=== PATIENT | female | born 1955 | race African-American/Black ===

== ENCOUNTER 2017-03-30 15:52 | Emergency (ER) | payer MEDICAID ==
[~2017-03-30] VITALS: Ht 167.6 cm; Wt 70.0 kg
[2017-03-30] MEDS ORDERED: IBUPROFEN 400MG TABLET PO ONE (18:15)
[2017-03-30] MEDS ORDERED: ACETAMINOPHEN 325MG TABLET PO ONE (21:15)
[2017-03-31 05:52] VITALS: BP 136/81
== END 2017-03-31 06:11 | disposition home or self-care (01) ==
LOC: ER 15:53
DX: S93.402A Sprain of unspecified ligament of left ankle, initial encounter (principal); G89.29 Other chronic pain; M79.605 Pain in left leg; X58.XXXA Exposure to other specified factors, initial encounter; Y93.89 Activity, other specified; Y92.89 Other specified places as the place of occurrence of the external cause; I10 Essential (primary) hypertension
CPT/HCPCS: 73610; 99284

== ENCOUNTER 2017-08-25 23:12 | Emergency (ER) | payer MEDICAID ==
[~2017-08-25] VITALS: Ht 165.1 cm; Wt 65.0 kg
[2017-08-26] MEDS ORDERED: ENALAPRIL 2.5MG/2ML VIAL 2ML IV SCH (03:30)
[2017-08-26 03:48] LABS: EOSINOPHILS % 0.5 % (0.0-5.0); HEMATOCRIT. 36.4 % (36.0-48.0); HEMOGLOBIN. 11.9 g/dL (12.0-16.0); LYMPHOCYTES % 28.1 % (20.0-50.0); MEAN CORPUSCULAR HEMOGLOBIN 26.2 pg (28.0-32.0); MEAN CORPUSCULAR VOLUME 79.8 fL (81.0-99.0); MEAN PLATELET VOLUME 7.9 fl (7.4-10.4); MONOCYTES % 8.8 % (2.0-8.0); NEUTROPHILS % 61.6 % (40.0-76.0); PLATELET 234 x1000/uL (130-400); RED BLOOD CELL COUNT 4.55 mill/uL (4.2-5.4); RED CELL DISTRIBUTION WIDTH 13.2 % (11.6-14.6)
[2017-08-26 03:52] LABS: PROTHROMBIN TIME 10.2 sec (9.4-11.6)
[2017-08-26 04:03] LABS: CARBON DIOXIDE 32 mEq/L (21-32); CHLORIDE 102 mEq/L (98-107); ETHANOL BLOOD < 10 mg/dL; TROPONIN I < 0.02 ng/mL (0.00-0.04)
[2017-08-26] MEDS ORDERED: CLONIDINE 0.1MG TABLET PO ONE (05:15)
[2017-08-26] MEDS ORDERED: IBUPROFEN 600MG TABLET PO ONE (05:30)
[2017-08-26 05:53] LABS: CLARITY URINE CLEAR (CLEAR); COLOR URINE YELLOW (YELLOW); GLUCOSE URINE NEGATIVE (NEGATIVE); KETONES URINE NEGATIVE (NEGATIVE); LEUKOCYTE ESTERASE URINE 1+ (NEGATIVE); NITRITE URINE NEGATIVE (NEGATIVE); OCCULT BLOOD URINE 2+ (NEGATIVE); PROTEIN URINE NEGATIVE (NEGATIVE); SPECIFIC GRAVITY URINE 1.012 (1.005-1.030); UROBILINOGEN URINE 0.2 E.U./dL (0.2-1.0)
[2017-08-26 06:30] LABS: *AMPHETAMINES SCREEN URINE NEGATIVE (NEGATIVE); *BARBITURATES SCREEN URINE NEGATIVE (NEGATIVE); *BENZODIAZEPINES SCREEN URINE NEGATIVE (NEGATIVE); *COCAINE SCREEN URINE NEGATIVE (NEGATIVE); CANNABINOID URINE SCREEN NEGATIVE (NEGATIVE); METHADONE URINE SCREEN NEGATIVE (NEGATIVE); OPIATES URINE SCREEN NEGATIVE (NEGATIVE); PHENCYCLIDINE URINE SCREEN PRESUMTIVE POSITIVE (NEGATIVE)
[2017-08-26] MEDS ORDERED: POTASSIUM CHLORIDE 20MEQ TABLET SR PO SCH (06:30)
[2017-08-26 08:43] VITALS: BP 152/98
== END 2017-08-26 08:50 | disposition home or self-care (01) ==
LOC: ER 23:12
DX: M79.671 Pain in right foot (principal); I10 Essential (primary) hypertension; X50.1XXA Overexertion from prolonged static or awkward postures, initial encounter; Y93.89 Activity, other specified; Y92.89 Other specified places as the place of occurrence of the external cause
CPT/HCPCS: 36415; 70450; 73630; 80053; 80305; 81001; 84484; 85025; 85610; 93005; 96374; 99285; G0482; J3490; Z7610

== ENCOUNTER 2018-06-24 20:03 | Emergency (ER) | payer MEDICAID ==
[~2018-06-24] VITALS: Ht 167.6 cm; Wt 69.0 kg
[2018-06-24] MEDS ORDERED: FOLIC ACID 1 MG, THIAMINE HCL 100 MG, MVI, ADULT NO.1 10 ML in DEXTROSE 5% WATER 1,000 ML IV ONE ×4 (22:15)
[2018-06-25] MEDS ORDERED: KETOROLAC 30MG/ML VIAL IV ONE (00:45)
[2018-06-25 04:13] VITALS: BP 156/85
== END 2018-06-25 05:10 | disposition home or self-care (01) ==
LOC: ER 20:03
DX: T51.0X1A Toxic effect of ethanol, accidental (unintentional), initial encounter (principal); G92 Toxic encephalopathy; E66.9 Obesity, unspecified; Y90.0 Blood alcohol level of less than 20 mg/100 ml; Z90.710 Acquired absence of both cervix and uterus; Z68.24 Body mass index [BMI] 24.0-24.9, adult; Y92.018 Other place in single-family (private) house as the place of occurrence of the external cause
CPT/HCPCS: 36415; 70450; 96365; 96375; 99285; G0482; J1885; J3411; J3490; J7070; Z7610

== ENCOUNTER 2018-06-26 23:51 | Emergency (ER) | payer MEDICAID ==
[~2018-06-26] VITALS: Ht 165.1 cm; Wt 73.0 kg
[2018-06-27] MEDS ORDERED: IBUPROFEN 600MG TABLET PO STA (02:40)
[2018-06-27 03:02] LABS: BASOPHILS % 1.4 % (0.0-2.0); EOSINOPHILS % 1.4 % (0.0-5.0); HEMOGLOBIN. 11.8 g/dL (12.0-16.0); LYMPHOCYTES % 36.5 % (20.0-50.0); MEAN CORPUSCULAR HEMOGLOBIN 27.5 pg (28.0-32.0); MEAN CORPUSCULAR VOLUME 81.6 fL (81.0-99.0); MEAN PLATELET VOLUME 7.1 fl (7.4-10.4); MONOCYTES % 9.7 % (2.0-8.0); PLATELET 260 x1000/uL (130-400); RED BLOOD CELL COUNT 4.29 mill/uL (4.2-5.4); RED CELL DISTRIBUTION WIDTH 13.1 % (11.6-14.6)
[2018-06-27 03:25] LABS: CHLORIDE 89 mEq/L (98-107)
[2018-06-27 03:27] LABS: ETHANOL BLOOD < 10 mg/dL
[2018-06-27 03:35] LABS: CLARITY URINE CLOUDY (CLEAR); COLOR URINE YELLOW (YELLOW); KETONES URINE NEGATIVE (NEGATIVE); LEUKOCYTE ESTERASE URINE NEGATIVE (NEGATIVE); NITRITE URINE NEGATIVE (NEGATIVE); OCCULT BLOOD URINE TRACE (NEGATIVE); PROTEIN URINE NEGATIVE (NEGATIVE); SPECIFIC GRAVITY URINE 1.015 (1.005-1.030); UROBILINOGEN URINE 0.2 E.U./dL (0.2-1.0)
[2018-06-27 03:44] LABS: *AMPHETAMINES SCREEN URINE NEGATIVE (NEGATIVE); *BARBITURATES SCREEN URINE NEGATIVE (NEGATIVE); *BENZODIAZEPINES SCREEN URINE NEGATIVE (NEGATIVE); *COCAINE SCREEN URINE NEGATIVE (NEGATIVE); CANNABINOID URINE SCREEN NEGATIVE (NEGATIVE)
[2018-06-27 03:45] LABS: METHADONE URINE SCREEN NEGATIVE (NEGATIVE); OPIATES URINE SCREEN PRESUMTIVE POSITIVE (NEGATIVE); PHENCYCLIDINE URINE SCREEN PRESUMTIVE POSITIVE (NEGATIVE)
[2018-06-27 04:19] VITALS: BP 152/108
== END 2018-06-27 04:58 | disposition home or self-care (01) ==
LOC: ER 23:51
DX: M54.5 Low back pain (principal); F11.10 Opioid abuse, uncomplicated; F16.10 Hallucinogen abuse, uncomplicated; I10 Essential (primary) hypertension; F17.200 Nicotine dependence, unspecified, uncomplicated
CPT/HCPCS: 36415; 80053; 80305; 81003; 85025; 99284; G0482

== ENCOUNTER 2018-07-07 16:35 | Emergency (ER) | payer MEDICAID ==
[~2018-07-07] VITALS: Ht 165.1 cm; Wt 72.0 kg
[2018-07-07] MEDS ORDERED: KETOROLAC 60MG/2ML VIAL IM ONE (19:00)
[2018-07-07 23:00] VITALS: BP 138/84
== END 2018-07-07 23:17 | disposition home or self-care (01) ==
LOC: ER 16:35
DX: G89.29 Other chronic pain (principal); M54.5 Low back pain; I10 Essential (primary) hypertension; F17.200 Nicotine dependence, unspecified, uncomplicated
CPT/HCPCS: 72131; 96372; 99284; J1885

== ENCOUNTER 2018-07-27 23:47 | Emergency (ER) | payer MEDICAID ==
[~2018-07-27] VITALS: Ht 170.2 cm; Wt 70.0 kg
[2018-07-28] MEDS ORDERED: MORPHINE SULFATE 10 MG/ML CPJ IM ONE (01:15)
[2018-07-28] MEDS ORDERED: ONDANSETRON 4MG ODT PO ONE (01:15)
[2018-07-28 02:20] LABS: CLARITY URINE CLEAR (CLEAR); COLOR URINE YELLOW (YELLOW); KETONES URINE NEGATIVE (NEGATIVE); LEUKOCYTE ESTERASE URINE NEGATIVE (NEGATIVE); NITRITE URINE NEGATIVE (NEGATIVE); OCCULT BLOOD URINE 1+ (NEGATIVE); PROTEIN URINE NEGATIVE (NEGATIVE); SPECIFIC GRAVITY URINE 1.008 (1.005-1.030); UROBILINOGEN URINE 0.2 E.U./dL (0.2-1.0)
[2018-07-28 03:21] VITALS: BP 156/102
== END 2018-07-28 05:05 | disposition home or self-care (01) ==
LOC: ER 23:59
DX: M54.9 Dorsalgia, unspecified (principal); I10 Essential (primary) hypertension; Z98.890 Other specified postprocedural states
CPT/HCPCS: 81003; 96372; 99283; J2270; Q0162; Z7610

== ENCOUNTER 2019-01-15 14:53 | Emergency (ER) | payer MEDICAID ==
[~2019-01-15] VITALS: Ht 165.1 cm; Wt 68.0 kg
[2019-01-15] MEDS ORDERED: KETOROLAC 60MG/2ML VIAL IM ONE (15:30)
[2019-01-15] MEDS ORDERED: TRAMADOL 50MG TABLET PO ONE (17:15)
[2019-01-15 17:16] VITALS: BP 167/105
== END 2019-01-15 18:00 | disposition home or self-care (01) ==
LOC: ER 14:53
DX: S90.02XA Contusion of left ankle, initial encounter (principal); R51 Headache; M54.5 Low back pain; I10 Essential (primary) hypertension; Y08.89XA Assault by other specified means, initial encounter; Y93.89 Activity, other specified; Y92.89 Other specified places as the place of occurrence of the external cause; Y99.8 Other external cause status
CPT/HCPCS: 70450; 73610; 96372; 99284; J1885

== ENCOUNTER 2019-02-26 23:38 | Emergency (ER) | payer MEDICAID ==
[~2019-02-26] VITALS: Ht 162.6 cm; Wt 61.0 kg
[2019-02-27 00:54] LABS: CLARITY URINE CLEAR (CLEAR); COLOR URINE YELLOW (YELLOW); KETONES URINE NEGATIVE (NEGATIVE); LEUKOCYTE ESTERASE URINE NEGATIVE (NEGATIVE); NITRITE URINE NEGATIVE (NEGATIVE); OCCULT BLOOD URINE 1+ (NEGATIVE); PROTEIN URINE NEGATIVE (NEGATIVE); SPECIFIC GRAVITY URINE 1.017 (1.005-1.030); UROBILINOGEN URINE 0.2 E.U./dL (0.2-1.0)
[2019-02-27 00:54] LABS: BASOPHILS % 1.1 % (0.0-2.0); EOSINOPHILS % 1.1 % (0.0-5.0); HEMATOCRIT. 38.2 % (36.0-48.0); HEMOGLOBIN. 12.6 g/dL (12.0-16.0); LYMPHOCYTES % 27.6 % (20.0-50.0); MEAN CORPUSCULAR HEMOGLOBIN 27.1 pg (28.0-32.0); MEAN CORPUSCULAR VOLUME 82.3 fL (81.0-99.0); MEAN PLATELET VOLUME 7.9 fl (7.4-10.4); MONOCYTES % 7.3 % (2.0-8.0); NEUTROPHILS % 62.9 % (40.0-76.0); PLATELET 255 x1000/uL (130-400); RED BLOOD CELL COUNT 4.64 mill/uL (4.2-5.4); RED CELL DISTRIBUTION WIDTH 13.7 % (11.6-14.6)
[2019-02-27 00:58] LABS: CHLORIDE 106 mEq/L (98-107)
[2019-02-27 01:02] LABS: ETHANOL BLOOD < 10 mg/dL
[2019-02-27 01:06] LABS: *AMPHETAMINES SCREEN URINE NEGATIVE (NEGATIVE); *BARBITURATES SCREEN URINE NEGATIVE (NEGATIVE)
[2019-02-27 01:07] LABS: *COCAINE SCREEN URINE NEGATIVE (NEGATIVE); CANNABINOID URINE SCREEN NEGATIVE (NEGATIVE); METHADONE URINE SCREEN NEGATIVE (NEGATIVE); OPIATES URINE SCREEN NEGATIVE (NEGATIVE); PHENCYCLIDINE URINE SCREEN PRESUMTIVE POSITIVE (NEGATIVE)
[2019-02-27 01:08] LABS: *BENZODIAZEPINES SCREEN URINE NEGATIVE (NEGATIVE)
[2019-02-27 04:02] VITALS: BP 174/97
== END 2019-02-27 04:13 | disposition home or self-care (01) ==
LOC: ER 23:38
DX: F16.10 Hallucinogen abuse, uncomplicated (principal); I10 Essential (primary) hypertension
CPT/HCPCS: 36415; 70450; 80053; 80305; 80320; 81003; 85025; 99284; Z7610; A4315; G0480

== ENCOUNTER 2019-04-16 17:20 | Inpatient (IN) | payer MEDICAID ==
[~2019-04-16] VITALS: Ht 167.6 cm; Wt 71.7 kg
[2019-04-16 18:55] LABS: BASOPHILS % 0.9 % (0.0-2.0); EOSINOPHILS % 1.5 % (0.0-5.0); HEMATOCRIT. 33.8 % (36.0-48.0); HEMOGLOBIN. 11.2 g/dL (12.0-16.0); LYMPHOCYTES % 41.5 % (20.0-50.0); MEAN CORPUSCULAR HEMOGLOBIN 26.8 pg (28.0-32.0); MEAN PLATELET VOLUME 7.2 fl (7.4-10.4); NEUTROPHILS % 49.1 % (40.0-76.0); PLATELET 266 x1000/uL (130-400); RED BLOOD CELL COUNT 4.18 mill/uL (4.2-5.4); RED CELL DISTRIBUTION WIDTH 13.1 % (11.6-14.6)
[2019-04-16 19:04] LABS: CHLORIDE 106 mEq/L (98-107)
[2019-04-16] MEDS ORDERED: SODIUM CHLORIDE 0.9% 1,000 ML IV ONE (19:28)
[2019-04-16] MEDS ORDERED: ONDANSETRON HCL 4MG/2ML INJ IV PRN (20:00)
[2019-04-16] MEDS ORDERED: DOCUSATE SODIUM 100MG CAPSULE PO PRN (20:00)
[2019-04-16] MEDS ORDERED: MAGNESIUM/ALUMINUM HYDROXIDE/SIMETHICONE 30ML UDC PO PRN (20:00)
[2019-04-16] MEDS ORDERED: ACETAMINOPHEN 325MG TABLET PO PRN (20:00)
[2019-04-16] MEDS ORDERED: POTASSIUM CHLORIDE 20MEQ TABLET SR PO ONE (20:30)
[2019-04-16] MEDS: HYDROCODONE/ACETAMINOPHEN 5/325MG TABLET PO PRN (21:01)
[2019-04-16 23:43] VITALS: BP 155/90
[2019-04-16] MEDS ORDERED: PNEUMOCOCCAL 23-VAL P-SAC VAC 0.5 ML IM ONE (23:45)
[2019-04-17] VITALS (8 sets, daily range): BP systolic 119–170; BP diastolic 70–108
[2019-04-17 00:06] LABS: CHLORIDE 108 mEq/L (98-107)
[2019-04-17] MEDS: ENOXAPARIN 40MG/0.4ML SYR SUBCUT SCH ×2 (00:08→21:12)
[2019-04-17] MEDS: CLONIDINE 0.1MG TABLET PO PRN ×2 (00:13→21:19)
[2019-04-17 00:15] LABS: CREATINE KINASE 65 IU/L (26-192)
[2019-04-17 00:16] LABS: CREATINE KINASE MB FRACTION < 1.0 ng/mL (0.5-3.6)
[2019-04-17] MEDS: IPRATROPIUM/ALBUTEROL 0.5-3(2.5)MG/3ML NEB INH PRN ×2 (00:26→04:36)
[2019-04-17] MEDS: HYDROCODONE/ACETAMINOPHEN 5/325MG TABLET PO PRN ×3 (01:03→12:30)
[2019-04-17 06:50] LABS: BASOPHILS % 0.7 % (0.0-2.0); EOSINOPHILS % 2.4 % (0.0-5.0); HEMATOCRIT. 28.3 % (36.0-48.0); HEMOGLOBIN. 9.7 g/dL (12.0-16.0); MEAN CORPUSCULAR HEMOGLOBIN 28.1 pg (28.0-32.0); MEAN CORPUSCULAR VOLUME 81.6 fL (81.0-99.0); MEAN PLATELET VOLUME 7.3 fl (7.4-10.4); MONOCYTES % 8.7 % (2.0-8.0); NEUTROPHILS % 35.2 % (40.0-76.0); PLATELET 252 x1000/uL (130-400); RED BLOOD CELL COUNT 3.46 mill/uL (4.2-5.4); RED CELL DISTRIBUTION WIDTH 12.8 % (11.6-14.6)
[2019-04-17 07:13] LABS: LDL CHOLESTEROL 39 mg/dL (5-100)
[2019-04-17 07:15] LABS: CREATINE KINASE 59 IU/L (26-192); HDL CHOLESTEROL 45 mg/dL (40-59)
[2019-04-17 07:16] LABS: CREATINE KINASE MB FRACTION < 1.0 ng/mL (0.5-3.6)
[2019-04-17] MEDS: ASPIRIN 81MG EC TABLET PO SCH (08:40)
[2019-04-17] MEDS: BENZONATATE 100MG CAPSULE PO PRN (08:40)
[2019-04-17] MEDS ORDERED: ATOR20TA65 MT (15:29)
[2019-04-17] MEDS ORDERED: CLAR500T MT (15:31)
[2019-04-17] MEDS: NICOTINE 14MG PATCH TD SCH (15:31)
[2019-04-17] MEDS ORDERED: LOSA1TAB37 MT (15:31)
[2019-04-17] MEDS: MORPHINE SULFATE 2 MG/ML CPJ (NOT FOR IM USE) IV PRN (17:58)
[2019-04-17 19:07] LABS: *BENZODIAZEPINES SCREEN URINE NEGATIVE (NEGATIVE); *COCAINE SCREEN URINE NEGATIVE (NEGATIVE); METHADONE URINE SCREEN NEGATIVE (NEGATIVE); PHENCYCLIDINE URINE SCREEN PRESUMTIVE POSITIVE (NEGATIVE)
[2019-04-17 19:08] LABS: *AMPHETAMINES SCREEN URINE NEGATIVE (NEGATIVE); *BARBITURATES SCREEN URINE NEGATIVE (NEGATIVE); CANNABINOID URINE SCREEN NEGATIVE (NEGATIVE)
[2019-04-17 19:15] LABS: OPIATES URINE SCREEN PRESUMTIVE POSITIVE (NEGATIVE)
[2019-04-17] MEDS: ATORVASTATIN CALCIUM 20MG TABLET PO SCH (21:12)
[2019-04-17] MEDS ORDERED: DEXTROSE 50% WATER 50ML SYRINGE IV PRN (21:15)
[2019-04-17 23:02] LABS: TOTAL IRON BINDING CAPACITY 206 ug/dL (250-450)
[2019-04-17 23:05] LABS: CREATINE KINASE 63 IU/L (26-192); T4 FREE 0.93 ng/dL (0.76-1.46)
[2019-04-17 23:06] LABS: CREATINE KINASE MB FRACTION < 1.0 ng/mL (0.5-3.6)
[2019-04-18] VITALS: BP 160/110
[2019-04-18] MEDS: MORPHINE SULFATE 2 MG/ML CPJ (NOT FOR IM USE) IV PRN ×3 (01:52→13:26)
[2019-04-18 04:00] VITALS: BP 157/90
[2019-04-18] MEDS: BLOOD SUGAR DIAGNOSTIC STRIP TEST SCH ×4 (06:29→21:00)
[2019-04-18] MEDS: INSULIN LISPRO 100 UNITS/ML SUBCUT SCH ×4 (06:29→21:00)
[2019-04-18 07:34] LABS: EOSINOPHILS % 2.7 % (0.0-5.0); HEMATOCRIT. 31.4 % (36.0-48.0); HEMOGLOBIN. 10.5 g/dL (12.0-16.0); LYMPHOCYTES % 44.5 % (20.0-50.0); MEAN CORPUSCULAR HEMOGLOBIN 27.2 pg (28.0-32.0); MEAN CORPUSCULAR VOLUME 81.5 fL (81.0-99.0); MEAN PLATELET VOLUME 7.1 fl (7.4-10.4); MONOCYTES % 6.6 % (2.0-8.0); NEUTROPHILS % 45.2 % (40.0-76.0); PLATELET 267 x1000/uL (130-400); RED BLOOD CELL COUNT 3.86 mill/uL (4.2-5.4); RED CELL DISTRIBUTION WIDTH 12.8 % (11.6-14.6)
[2019-04-18 08:00] VITALS: BP 140/90
[2019-04-18 08:21] LABS: CHLORIDE 107 mEq/L (98-107)
[2019-04-18] MEDS: ASPIRIN 81MG EC TABLET PO SCH (08:34)
[2019-04-18] MEDS: LOSARTAN POTASSIUM 100 MG TABLET PO SCH (08:34)
[2019-04-18] MEDS: BENZONATATE 100MG CAPSULE PO PRN ×2 (08:34→16:38)
[2019-04-18] MEDS: NICOTINE 14MG PATCH TD SCH (08:35)
[2019-04-18 12:00] VITALS: BP 147/89
[2019-04-18 16:00] VITALS: BP_SYST 128; BP_SYST 133; BP_SYST 138; BP_DIAS 84; BP_DIAS 88; BP_DIAS 89
[2019-04-18 20:00] VITALS: BP 132/90
[2019-04-18] MEDS: ATORVASTATIN CALCIUM 20MG TABLET PO SCH (20:50)
[2019-04-18] MEDS: ENOXAPARIN 40MG/0.4ML SYR SUBCUT SCH (20:51)
[2019-04-18] MEDS: HYDROCODONE/ACETAMINOPHEN 5/325MG TABLET PO PRN (20:52)
[2019-04-19] VITALS: BP 138/87
[2019-04-19] MEDS: MORPHINE SULFATE 2 MG/ML CPJ (NOT FOR IM USE) IV PRN ×2 (01:21→10:02)
[2019-04-19 04:00] VITALS: BP 146/90
[2019-04-19] MEDS: HYDROCODONE/ACETAMINOPHEN 5/325MG TABLET PO PRN (05:39)
[2019-04-19] MEDS: BLOOD SUGAR DIAGNOSTIC STRIP TEST SCH ×2 (05:40→12:10)
[2019-04-19] MEDS: INSULIN LISPRO 100 UNITS/ML SUBCUT SCH ×2 (05:40→12:40)
[2019-04-19 08:00] VITALS: BP 152/90
[2019-04-19] MEDS: LOSARTAN POTASSIUM 100 MG TABLET PO SCH (09:59)
[2019-04-19] MEDS: BENZONATATE 100MG CAPSULE PO PRN (09:59)
[2019-04-19] MEDS: NICOTINE 14MG PATCH TD SCH (10:00)
[2019-04-19] MEDS: ASPIRIN 81MG EC TABLET PO SCH (10:14)
[2019-04-19 12:00] VITALS: BP 145/85
[2019-04-19] MEDS ORDERED: ASPI-1158 PO (14:10)
[2019-04-19 15:12] VITALS: BP 145/85
[2019-04-19 16:00] VITALS: BP 155/92
== END 2019-04-19 17:28 | disposition home or self-care (01) | DRG 204 ==
LOC: ER 17:20 → 8WST 19:51 → ENRESERV 21:38
PROVIDERS: ADMIT Internal Medicine; ATTEND Internal Medicine
DX: R55 Syncope and collapse (principal); D64.9 Anemia, unspecified; F32.9 Major depressive disorder, single episode, unspecified; I10 Essential (primary) hypertension; M54.30 Sciatica, unspecified side; R07.89 Other chest pain; F19.10 Other psychoactive substance abuse, uncomplicated; E05.90 Thyrotoxicosis, unspecified without thyrotoxic crisis or storm; W18.39XA Other fall on same level, initial encounter; J42 Unspecified chronic bronchitis; D72.820 Lymphocytosis (symptomatic); D72.821 Monocytosis (symptomatic); F10.20 Alcohol dependence, uncomplicated; F16.90 Hallucinogen use, unspecified, uncomplicated; Z72.0 Tobacco use; Z82.49 Family history of ischemic heart disease and other diseases of the circulatory system; Z87.81 Personal history of (healed) traumatic fracture; Z91.19 Patient's noncompliance with other medical treatment and regimen; Y93.89 Activity, other specified; Y92.89 Other specified places as the place of occurrence of the external cause; Y99.8 Other external cause status
CPT/HCPCS: 36415; 71045; 80048; 80061; 80305; 80320; 82550; 82553; 82728; 82962; 83036; 83540; 83550; 83735; 83880; 84439; 84443; 84481; 84484; 85379; 93005; 93306; 93970; 94640; 96360; 96361; 99285; C1893; J1650; J2270; J7030; J7620; G0480

== ENCOUNTER 2020-02-25 13:06 | Emergency (ER) | payer MEDICAID ==
[~2020-02-25] VITALS: Ht 167.6 cm; Wt 77.0 kg
[~2020-02-25 13:06] MED LIST: AMLO5TAB88 MT; HYDR25TA MT
[2020-02-25] MEDS ORDERED: ACETAMINOPHEN 325MG TABLET PO STA (13:48)
[2020-02-25] MEDS ORDERED: SODIUM CHLORIDE 0.9% 1,000 ML IV ONE (13:48)
[2020-02-25 14:02] LABS: BASOPHILS % 0.4 % (0.0-2.0); EOSINOPHILS % 0.3 % (0.0-5.0); HEMATOCRIT. 36.1 % (36.0-48.0); LYMPHOCYTES % 12.3 % (20.0-50.0); MEAN CORPUSCULAR HEMOGLOBIN 26.9 pg (28.0-32.0); MEAN CORPUSCULAR VOLUME 80.8 fL (81.0-99.0); MEAN PLATELET VOLUME 7.5 fl (7.4-10.4); MONOCYTES % 6.8 % (2.0-8.0); NEUTROPHILS % 80.2 % (40.0-76.0); PLATELET 275 x1000/uL (130-400); RED BLOOD CELL COUNT 4.47 mill/uL (4.2-5.4); RED CELL DISTRIBUTION WIDTH 13.8 % (11.6-14.6)
[2020-02-25 14:08] LABS: CHLORIDE 100 mEq/L (98-107)
[2020-02-25 14:14] LABS: ETHANOL BLOOD < 10 mg/dL
[2020-02-25 14:43] LABS: CLARITY URINE CLEAR (CLEAR); COLOR URINE YELLOW (YELLOW); KETONES URINE NEGATIVE (NEGATIVE); LEUKOCYTE ESTERASE URINE TRACE (NEGATIVE); NITRITE URINE NEGATIVE (NEGATIVE); OCCULT BLOOD URINE 2+ (NEGATIVE); PROTEIN URINE 1+ (NEGATIVE); SPECIFIC GRAVITY URINE 1.012 (1.005-1.030); UROBILINOGEN URINE 0.2 E.U./dL (0.2-1.0)
[2020-02-25 15:09] LABS: METHADONE URINE SCREEN NEGATIVE (NEGATIVE)
[2020-02-25 15:10] LABS: *AMPHETAMINES SCREEN URINE NEGATIVE (NEGATIVE); *BARBITURATES SCREEN URINE NEGATIVE (NEGATIVE); *BENZODIAZEPINES SCREEN URINE NEGATIVE (NEGATIVE); *COCAINE SCREEN URINE NEGATIVE (NEGATIVE); CANNABINOID URINE SCREEN NEGATIVE (NEGATIVE); OPIATES URINE SCREEN NEGATIVE (NEGATIVE); PHENCYCLIDINE URINE SCREEN PRESUMTIVE POSITIVE (NEGATIVE)
[2020-02-25] MEDS ORDERED: BACITRACIN ZINC OINT UDPKT TOP ONE (16:15)
[2020-02-25 16:43] VITALS: BP 141/80
== END 2020-02-25 16:46 | disposition home or self-care (01) ==
LOC: ER 13:06
DX: T40.991A Poisoning by other psychodysleptics [hallucinogens], accidental (unintentional), initial encounter (principal); G93.40 Encephalopathy, unspecified; Y92.89 Other specified places as the place of occurrence of the external cause; J45.909 Unspecified asthma, uncomplicated; I10 Essential (primary) hypertension; Z91.018 Allergy to other foods
CPT/HCPCS: 36415; 71045; 80053; 80305; 80320; 81003; 85025; 87040; 87804; 93005; 96360; 96361; 99285; J7030; G0480

== ENCOUNTER 2020-03-26 09:24 | Emergency (ER) | payer MEDICAID ==
[~2020-03-26] VITALS: Ht 162.6 cm; Wt 57.0 kg
[2020-03-26 11:50] LABS: CHLORIDE 107 mEq/L (98-107)
[2020-03-26 11:51] LABS: BASOPHILS % 0.5 % (0.0-2.0); EOSINOPHILS % 0.5 % (0.0-5.0); HEMATOCRIT. 32.9 % (36.0-48.0); HEMOGLOBIN. 10.9 g/dL (12.0-16.0); LYMPHOCYTES % 19.2 % (20.0-50.0); MEAN CORPUSCULAR HEMOGLOBIN 26.9 pg (28.0-32.0); MEAN PLATELET VOLUME 7.7 fl (7.4-10.4); MONOCYTES % 8.1 % (2.0-8.0); NEUTROPHILS % 71.7 % (40.0-76.0); PLATELET 265 x1000/uL (130-400); RED BLOOD CELL COUNT 4.06 mill/uL (4.2-5.4); RED CELL DISTRIBUTION WIDTH 14.2 % (11.6-14.6)
[2020-03-26 11:56] LABS: ETHANOL BLOOD < 10 mg/dL
[2020-03-26 13:27] LABS: CLARITY URINE CLEAR (CLEAR); COLOR URINE YELLOW (YELLOW); KETONES URINE NEGATIVE (NEGATIVE); LEUKOCYTE ESTERASE URINE TRACE (NEGATIVE); NITRITE URINE NEGATIVE (NEGATIVE); OCCULT BLOOD URINE 1+ (NEGATIVE); PH URINE 5.5 (4.5-8.0); PROTEIN URINE NEGATIVE (NEGATIVE); SPECIFIC GRAVITY URINE 1.015 (1.005-1.030); UROBILINOGEN URINE 0.2 E.U./dL (0.2-1.0)
[2020-03-26 13:43] LABS: *BENZODIAZEPINES SCREEN URINE NEGATIVE (NEGATIVE); *COCAINE SCREEN URINE NEGATIVE (NEGATIVE); METHADONE URINE SCREEN NEGATIVE (NEGATIVE); OPIATES URINE SCREEN NEGATIVE (NEGATIVE)
[2020-03-26 13:44] LABS: *AMPHETAMINES SCREEN URINE NEGATIVE (NEGATIVE); *BARBITURATES SCREEN URINE NEGATIVE (NEGATIVE); CANNABINOID URINE SCREEN NEGATIVE (NEGATIVE); PHENCYCLIDINE URINE SCREEN PRESUMTIVE POSITIVE (NEGATIVE)
[2020-03-26] MEDS ORDERED: ACETAMINOPHEN 325MG TABLET PO ONE (14:00)
[2020-03-26 16:00] VITALS: BP 125/67
== END 2020-03-26 17:17 | disposition home or self-care (01) ==
LOC: ER 09:36
DX: S09.8XXA Other specified injuries of head, initial encounter (principal); W14.XXXA Fall from tree, initial encounter; Y93.89 Activity, other specified; Y92.89 Other specified places as the place of occurrence of the external cause; Y99.8 Other external cause status; J45.909 Unspecified asthma, uncomplicated; I10 Essential (primary) hypertension; F16.10 Hallucinogen abuse, uncomplicated; Z91.018 Allergy to other foods
CPT/HCPCS: 36415; 80053; 80305; 80307; 80320; 80329; 81003; 85025; 99284; G0480

== ENCOUNTER 2020-09-19 08:26 | Emergency (ER) | payer MEDICARE, MEDICAID ==
[~2020-09-19] VITALS: Ht 165.1 cm; Wt 70.0 kg
[2020-09-19 09:47] LABS: BASOPHILS % 0.6 % (0.0-2.0); HEMOGLOBIN. 12.6 g/dL (12.0-16.0); LYMPHOCYTES % 13.3 % (20.0-50.0); MEAN CORPUSCULAR HEMOGLOBIN 26.5 pg (28.0-32.0); MEAN CORPUSCULAR VOLUME 80.2 fL (81.0-99.0); MONOCYTES % 3.9 % (2.0-8.0); NEUTROPHILS % 82.2 % (40.0-76.0); PLATELET 296 x1000/uL (130-400); RED BLOOD CELL COUNT 4.74 mill/uL (4.2-5.4); RED CELL DISTRIBUTION WIDTH 14.2 % (11.6-14.6)
[2020-09-19 09:55] LABS: CHLORIDE 104 mEq/L (98-107)
[2020-09-19 09:57] LABS: ETHANOL BLOOD < 10 mg/dL
[2020-09-19 10:15] LABS: CLARITY URINE CLOUDY (CLEAR); COLOR URINE YELLOW (YELLOW); KETONES URINE NEGATIVE (NEGATIVE); LEUKOCYTE ESTERASE URINE 2+ (NEGATIVE); NITRITE URINE NEGATIVE (NEGATIVE); OCCULT BLOOD URINE 2+ (NEGATIVE); PROTEIN URINE 3+ (NEGATIVE); UROBILINOGEN URINE 0.2 E.U./dL (0.2-1.0)
[2020-09-19] MEDS ORDERED: ACETAMINOPHEN 325MG TABLET PO ONE ×2 (10:30→13:00)
[2020-09-19 10:46] LABS: *AMPHETAMINES SCREEN URINE NEGATIVE (NEGATIVE); *BARBITURATES SCREEN URINE NEGATIVE (NEGATIVE); *BENZODIAZEPINES SCREEN URINE NEGATIVE (NEGATIVE); *COCAINE SCREEN URINE NEGATIVE (NEGATIVE); METHADONE URINE SCREEN NEGATIVE (NEGATIVE); OPIATES URINE SCREEN NEGATIVE (NEGATIVE); PHENCYCLIDINE URINE SCREEN PRESUMTIVE POSITIVE (NEGATIVE)
[2020-09-19 10:47] LABS: CANNABINOID URINE SCREEN NEGATIVE (NEGATIVE)
[2020-09-19] MEDS ORDERED: IBUPROFEN 400MG TABLET PO ONE (14:30)
[2020-09-19 14:45] VITALS: BP 176/116
== END 2020-09-19 16:04 | disposition home or self-care (01) ==
LOC: ER 08:32
DX: T40.991A Poisoning by other psychodysleptics [hallucinogens], accidental (unintentional), initial encounter (principal); N30.00 Acute cystitis without hematuria; I10 Essential (primary) hypertension; I49.9 Cardiac arrhythmia, unspecified; Z91.018 Allergy to other foods; Y92.9 Unspecified place or not applicable; R41.82 Altered mental status, unspecified
CPT/HCPCS: 36415; 80053; 80305; 80307; 80320; 80329; 81003; 85025; 93005; 99285; G0480

== ENCOUNTER 2021-03-02 23:42 | Emergency (ER) | payer MEDICARE, MEDICAID ==
[~2021-03-02] VITALS: Ht 170.2 cm; Wt 67.0 kg
[~2021-03-02 23:42] MED LIST changes: -AMLO5TAB88 MT; -HYDR25TA MT; +LOSA1TAB37 PO; +MELO-106 PO
[2021-03-03] MEDS ORDERED: LORAZEPAM 1MG TABLET PO ONE (00:15)
[2021-03-03] MEDS ORDERED: ASPIRIN 81MG TABLET PO ONE (00:15)
[2021-03-03 00:46] LABS: BASOPHILS % 0.9 % (0.0-2.0); EOSINOPHILS % 0.4 % (0.0-5.0); HEMATOCRIT. 38.2 % (36.0-48.0); HEMOGLOBIN. 12.7 g/dL (12.0-16.0); LYMPHOCYTES % 21.6 % (20.0-50.0); MEAN CORPUSCULAR HEMOGLOBIN 26.5 pg (28.0-32.0); MEAN CORPUSCULAR VOLUME 79.7 fL (81.0-99.0); MEAN PLATELET VOLUME 7.5 fl (7.4-10.4); MONOCYTES % 4.8 % (2.0-8.0); NEUTROPHILS % 72.3 % (40.0-76.0); PLATELET 342 x1000/uL (130-400); RED CELL DISTRIBUTION WIDTH 13.9 % (11.6-14.6)
[2021-03-03 00:48] LABS: CHLORIDE 103 mEq/L (98-107)
[2021-03-03 02:00] VITALS: BP 148/99
== END 2021-03-03 02:04 | disposition home or self-care (01) ==
LOC: ER 23:42
DX: T40.991A Poisoning by other psychodysleptics [hallucinogens], accidental (unintentional), initial encounter (principal); R07.89 Other chest pain; R00.2 Palpitations; R25.8 Other abnormal involuntary movements; F16.188 Hallucinogen abuse with other hallucinogen-induced disorder; Y92.89 Other specified places as the place of occurrence of the external cause
CPT/HCPCS: 36415; 71045; 80053; 83880; 84484; 85025; 93005; 99285

== ENCOUNTER 2025-10-30 14:35 | Inpatient (IN) | payer MEDICARE, MEDICAID ==
[~2025-10-30] VITALS: Ht 165.1 cm; Wt 75.5 kg
[2025-10-30 15:54] LABS: HEMATOCRIT. 36.2 % (36.0-48.0); HEMOGLOBIN. 11.4 g/dL (12.0-16.0); MEAN PLATELET VOLUME 7.8 fl (7.4-10.4); PLATELET 297 x1000/uL (130-400); RED BLOOD CELL COUNT 4.38 mill/uL (4.2-5.4); RED CELL DISTRIBUTION WIDTH 17.2 % (11.6-14.6)
[2025-10-30 16:00] LABS: CREATININE 1.5 mg/dL (0.6-1.0); UREA NITROGEN BLOOD 32.0 mg/dL (9-23)
[2025-10-30 16:01] LABS: PROTEIN TOTAL 7.1 g/dL (6.0-8.3); TROPONIN I HIGH SENSITIVITY 20 ng/L (3.0-34)
[2025-10-30 16:03] LABS: ASPARTATE AMINOTRANSFERASE 11 IU/L (<34); BILIRUBIN DIRECT < 0.1 mg/dL (<=3.0); BILIRUBIN TOTAL < 0.2 mg/dL (0.1-1.0)
[2025-10-30] MEDS: HYDROCODONE/ACETAMINOPHEN 5/325MG TABLET PO ONE (16:27)
[2025-10-30] MEDS: SODIUM CHLORIDE 0.9% 1,000 ML IV ONE ×2 (16:27→16:31)
[2025-10-30 16:42] LABS: EOSINOPHILS % MANUAL 1.0 % (0.0-5.0); LYMPHOCYTES % MANUAL 19.0 % (20.0-60.0); METAMYELOCYTES % 2.0 % (0-0); MONOCYTES % MANUAL 10.0 % (2.0-8.0); MYELOCYTES % 2.0 % (0-0); NEUTROPHILS % MANUAL 66.0 % (45.0-75.0); PLATELET ESTIMATE NORMAL
[2025-10-30 18:17] LABS: CLARITY URINE CLEAR (CLEAR); COLOR URINE YELLOW (YELLOW); GLUCOSE URINE 3+ (NEGATIVE); KETONES URINE NEGATIVE (NEGATIVE); LEUKOCYTE ESTERASE URINE NEGATIVE (NEGATIVE); NITRITE URINE NEGATIVE (NEGATIVE); OCCULT BLOOD URINE TRACE (NEGATIVE); PH URINE 5.0 (4.5-8.0); PROTEIN URINE 1+ (NEGATIVE); SPECIFIC GRAVITY URINE 1.023 (1.005-1.030); UROBILINOGEN URINE 0.2 E.U./dL (0.2-1.0)
[2025-10-30 18:24] LABS: SQUAMOUS EPITHELIAL CELL URINE RARE /lpf (RARE/1+); WBC URINE 0-2 /hpf (0-2)
[2025-10-30 18:25] LABS: BACTERIA URINE TRACE
[2025-10-30 19:30] VITALS: BP 120/81; PULSE 121; RESP 18; TEMP 37.252
[2025-10-30 20:00] VITALS: BP 120/81; PULSE 121; RESP 16; TEMP 37.2; O2SAT 97
[2025-10-30] MEDS ORDERED: HYDROCODONE/ACETAMINOPHEN 5/325MG TABLET PO PRN (20:00)
[2025-10-30] MEDS ORDERED: DEXTROSE 50% WATER 50ML SYRINGE IV PRN (20:00)
[2025-10-30] MEDS ORDERED: SODIUM CHLORIDE 0.45% 1,000 ML IV NR (20:00)
[2025-10-30] MEDS ORDERED: ACETAMINOPHEN 325MG TABLET PO PRN ×2 (20:00)
[2025-10-30] MEDS ORDERED: IPRATROPIUM/ALBUTEROL 0.5-3(2.5)MG/3ML NEB HHN PRN (20:00)
[2025-10-30] MEDS ORDERED: CLONIDINE 0.1MG TABLET PO PRN (20:00)
[2025-10-30] MEDS: METHIMAZOLE 5MG TABLET PO SCH (20:00)
[2025-10-30] MEDS ORDERED: DOCUSATE SODIUM 100MG CAPSULE PO PRN (20:00)
[2025-10-30 20:41] LABS: PHOSPHORUS 2.8 mg/dL (2.5-4.9)
[2025-10-30 20:44] LABS: T4 FREE 2.17 ng/dL (0.89-1.76)
[2025-10-30] MEDS ORDERED: CEFTRIAXONE 1GM/50ML 50 ML IV ONE (21:00)
[2025-10-30] MEDS: BLOOD SUGAR DIAGNOSTIC STRIP TEST SCH (21:00)
[2025-10-30] MEDS: INSULIN LISPRO 100 UNITS/ML SUBCUT SCH (21:00)
[2025-10-30] MEDS: METOPROLOL TARTRATE 50MG TABLET PO SCH (22:17)
[2025-10-30] MEDS: HYDROCODONE/ACETAMINOPHEN 10/325MG TABLET PO PRN (22:18)
[2025-10-30] MEDS: INSULIN GLARGINE 100 UNITS/ML SUBCUT SCH (22:19)
[2025-10-31] VITALS (8 sets, daily range): BP systolic 91–117; BP diastolic 58–83; PULSE 60–149; RESP 16–19; TEMP 35.8–36.6; O2SAT 93–100
[2025-10-31] MEDS: AZITHROMYCIN 500 MG TABLET PO SCH (00:06)
[2025-10-31] MEDS: CEFTRIAXONE 1GM/50ML 50 ML IV NR (00:06)
[2025-10-31] MEDS: PANTOPRAZOLE SODIUM 40 MG/VIAL IV SCH (00:07)
[2025-10-31] MEDS: SODIUM CHLORIDE 0.45% 1,000 ML IV SCH (00:07)
[2025-10-31] MEDS: ONDANSETRON HCL 4MG/2ML INJ IV PRN (00:25)
[2025-10-31] MEDS: GUAIFENESIN 200MG/10ML SUGAR FREE UDC PO PRN (00:25)
[2025-10-31 01:09] LABS: CREATININE 1.4 mg/dL (0.6-1.0); ETHANOL BLOOD < 10 mg/dL (<10); UREA NITROGEN BLOOD 32.0 mg/dL (9-23)
[2025-10-31 01:11] LABS: TROPONIN I HIGH SENSITIVITY 21 ng/L (3.0-34)
[2025-10-31 01:15] LABS: SODIUM URINE RANDOM 57.0 mEq/L
[2025-10-31 01:20] LABS: PROTEIN URINE RANDOM 80.0 mg/dL
[2025-10-31 01:21] LABS: *AMPHETAMINES SCREEN URINE NEGATIVE (NEGATIVE)
[2025-10-31 01:22] LABS: *BARBITURATES SCREEN URINE NEGATIVE (NEGATIVE); *BENZODIAZEPINES SCREEN URINE NEGATIVE (NEGATIVE); *COCAINE SCREEN URINE NEGATIVE (NEGATIVE); CANNABINOID URINE SCREEN NEGATIVE (NEGATIVE); ECSTASY MDMA SCREEN URINE NEGATIVE (NEGATIVE); METHADONE URINE SCREEN NEGATIVE (NEGATIVE); OPIATES URINE SCREEN PRESUMPTIVE POSITIVE (NEGATIVE); PHENCYCLIDINE URINE SCREEN NEGATIVE (NEGATIVE)
[2025-10-31 01:23] LABS: CREATININE URINE RANDOM 77.5 mg/dL
[2025-10-31 01:26] LABS: INR 0.9
[2025-10-31] MEDS: MAGNESIUM 4 G PREMIX 100 ML IV NR (01:36)
[2025-10-31] MEDS: INSULIN LISPRO 100 UNITS/ML SUBCUT SCH ×2 (08:22→12:15)
[2025-10-31 08:28] LABS: CREATININE 1.5 mg/dL (0.6-1.0)
[2025-10-31 08:29] LABS: TRIGLYCERIDE 227.0 mg/dL (0-150); UREA NITROGEN BLOOD 19.0 mg/dL (9-23)
[2025-10-31 08:30] LABS: LDL CHOLESTEROL 82.0 mg/dL (5-100)
[2025-10-31] MEDS ORDERED: LOSARTAN 25 MG TABLET PO SCH (09:00)
[2025-10-31] MEDS: DULOXETINE HCL 20MG DR CAPSULE PO SCH (09:45)
[2025-10-31] MEDS: ENOXAPARIN 40MG/0.4ML SYR SUBCUT SCH (09:45)
[2025-10-31 10:45] LABS: HEMATOCRIT. 30.6 % (36.0-48.0); HEMOGLOBIN. 9.7 g/dL (12.0-16.0); MEAN PLATELET VOLUME 7.9 fl (7.4-10.4); PLATELET 273 x1000/uL (130-400); RED BLOOD CELL COUNT 3.69 mill/uL (4.2-5.4); RED CELL DISTRIBUTION WIDTH 17.2 % (11.6-14.6)
[2025-10-31] MEDS: IPRATROPIUM/ALBUTEROL 0.5-3(2.5)MG/3ML NEB HHN SCH (11:01)
[2025-10-31] MEDS: BUDESONIDE 0.5MG/2ML NEB HHN SCH (11:01)
[2025-10-31 11:06] LABS: TROPONIN I HIGH SENSITIVITY 10 ng/L (3.0-34)
[2025-10-31] MEDS ORDERED: INSULIN LISPRO 100 UNITS/ML SUBCUT SCH (12:15)
[2025-10-31 20:11] LABS: EOSINOPHILS % MANUAL 1.0 % (0.0-5.0); LYMPHOCYTES % MANUAL 15.0 % (20.0-60.0); MONOCYTES % MANUAL 4.0 % (2.0-8.0); NEUTROPHILS % MANUAL 80.0 % (45.0-75.0); PLATELET ESTIMATE NORMAL
[2025-10-31] MEDS: MELATONIN 3MG TABLET PO SCH (21:29)
[2025-10-31] MEDS ORDERED: NALOXONE HCL 0.4MG/ML VIAL IV PRN (21:30)
[2025-11-01] VITALS (8 sets, daily range): BP systolic 100–123; BP diastolic 63–80; PULSE 75–142; RESP 16–18; TEMP 36.1–36.6; O2SAT 94–98
[2025-11-01 07:01] LABS: PLATELET 257 x1000/uL (130-400); RED BLOOD CELL COUNT 3.47 mill/uL (4.2-5.4); RED CELL DISTRIBUTION WIDTH 17.7 % (11.6-14.6)
[2025-11-01 07:21] LABS: CREATININE 1.2 mg/dL (0.6-1.0); UREA NITROGEN BLOOD 20 mg/dL (9-23)
[2025-11-01 07:23] LABS: T4 FREE 1.76 ng/dL (0.89-1.76)
[2025-11-01] MEDS: MAGNESIUM 4 G PREMIX 100 ML IV SCH (13:53)
[2025-11-01] MEDS: CEFTRIAXONE 1GM/50ML 50 ML IV SCH (13:53)
[2025-11-01] MEDS: LEVETIRACETAM 500MG TABLET PO SCH (21:14)
[2025-11-01] MEDS: METOPROLOL TARTRATE 25MG TABLET PO SCH (21:15)
[2025-11-02] VITALS (7 sets, daily range): BP systolic 106–126; BP diastolic 63–87; PULSE 91–115; RESP 17–20; TEMP 36–36.7; O2SAT 96–99
[2025-11-02] MEDS: PROPRANOLOL HCL 10MG TABLET PO SCH (15:11)
[2025-11-02] MEDS ORDERED: LEVOFLOXACIN 500MG TABLET PO SCH (16:30)
[2025-11-02] MEDS: LEVOFLOXACIN 250MG TABLET PO SCH (18:23)
[2025-11-02] MEDS ORDERED: METOPROLOL TARTRATE 50MG TABLET PO SCH (21:00)
[2025-11-03] VITALS (7 sets, daily range): BP systolic 95–134; BP diastolic 53–92; PULSE 18–121; RESP 17–23; TEMP 36.2–36.6; O2SAT 94–99
[2025-11-03] MEDS: METHIMAZOLE 10MG TABLET PO SCH (10:03)
[2025-11-03] MEDS ORDERED: PROPRANOLOL HCL 10MG TABLET PO SCH ×2 (12:00)
[2025-11-03] MEDS: PROPRANOLOL HCL 10MG TABLET PO SCH (13:06)
[2025-11-04] VITALS (7 sets, daily range): BP systolic 93–115; BP diastolic 66–80; PULSE 82–107; RESP 14–19; TEMP 35.9–36.1; O2SAT 92–100
[2025-11-04] MEDS ORDERED: PROPRANOLOL HCL 10MG TABLET PO SCH (18:00)
[2025-11-07] MEDS ORDERED: NA P133E RC (17:42)
[2025-11-07] MEDS ORDERED: GLUC1VIA19 (17:42)
[2025-11-07] MEDS ORDERED: dexamethasone (17:42)
[2025-11-07] MEDS ORDERED: DULO20CA18 MT (17:42)
[2025-11-07] MEDS ORDERED: BENZ100C86 MT (17:42)
[2025-11-07] MEDS ORDERED: BISA10SU62 RC (17:42)
[2025-11-07] MEDS ORDERED: BENZ1LOZ73 MT (17:42)
[2025-11-07] MEDS ORDERED: DEXTL MT (17:42)
[2025-11-07] MEDS ORDERED: ACET-2708 PO (17:42)
[2025-11-07] MEDS ORDERED: TOPUD MT (17:42)
[2025-11-07] MEDS ORDERED: HYDR-4001 MT (17:42)
[2025-11-07] MEDS ORDERED: INSU100I28 SQ (18:24)
[2025-11-07] MEDS ORDERED: METF-414 PO (18:24)
[2025-11-07] MEDS ORDERED: LEVE750T83 MT (18:24)
[2025-11-07] MEDS ORDERED: METO25TA6 PO (18:24)
[2025-11-07] MEDS ORDERED: LOSA1TAB37 MT (18:24)
[2025-11-07] MEDS ORDERED: MOM MT (18:24)
[2025-11-07] MEDS ORDERED: [UNRECOGNIZED DRUG - CODE] PO (19:12)
[2025-11-07] MEDS ORDERED: PANT40TA51 MT (19:12)
[2025-11-07] MEDS ORDERED: ONDA4TAB50 MT (19:12)
== END 2025-11-04 15:53 | disposition home health service (06) | DRG 391 ==
LOC: ER 14:35 → 5WST 19:02 → EDBEDREQ 19:04 → EDBEDREQTM 19:04 → ENRESERV 19:27
PROVIDERS: ADMIT Hospitalist; ATTEND Hospitalist
DX: K52.9 Noninfective gastroenteritis and colitis, unspecified (principal); N17.0 Acute kidney failure with tubular necrosis; E87.0 Hyperosmolality and hypernatremia; I24.89 Other forms of acute ischemic heart disease; D64.9 Anemia, unspecified; E11.22 Type 2 diabetes mellitus with diabetic chronic kidney disease; N39.0 Urinary tract infection, site not specified; I50.32 Chronic diastolic (congestive) heart failure; I13.0 Hypertensive heart and chronic kidney disease with heart failure and stage 1 through stage 4 chronic kidney disease, or unspecified chronic kidney disease; E05.90 Thyrotoxicosis, unspecified without thyrotoxic crisis or storm; F32.A Depression, unspecified; N18.9 Chronic kidney disease, unspecified; E87.1 Hypo-osmolality and hyponatremia; R07.89 Other chest pain; E86.0 Dehydration; E83.52 Hypercalcemia; E83.42 Hypomagnesemia; M47.816 Spondylosis without myelopathy or radiculopathy, lumbar region; E04.1 Nontoxic single thyroid nodule; E87.6 Hypokalemia; R00.0 Tachycardia, unspecified; E87.5 Hyperkalemia; G47.00 Insomnia, unspecified; G89.29 Other chronic pain; Z79.4 Long term (current) use of insulin; Z79.899 Other long term (current) drug therapy; Z90.710 Acquired absence of both cervix and uterus; Z82.49 Family history of ischemic heart disease and other diseases of the circulatory system
CPT/HCPCS: 36415; 71045; 80048; 80061; 80076; 80305; 80320; 81003; 82010; 82533; 82550; 82570; 82962; 83036; 83540; 83550; 83605; 83735; 83880; 83930; 84100; 84145; 84156; 84300; 84439; 84443; 84484; 85025; 85027; 85044; 85379; 86850; 86900; 87077; 87186; 93005; 93970; 94070; 94640; 96360; 97162; 97166; 99285; A4606; J0696; J1650; J1815; J2405; J2470; J3475; J7030; J7626; G0480

== ENCOUNTER 2025-11-14 14:38 | Inpatient (IN) | payer MEDICARE, MEDICAID ==
[~2025-11-14] VITALS: Ht 165.1 cm; Wt 78.5 kg
[~2025-11-14 14:38] MED LIST changes: +ACET-2708 PO; +BENZ100C86 MT; +BENZ1LOZ73 MT; +BISA10SU62 RC; +DEXTL MT; +DULO20CA18 MT; +GLUC1VIA19; +HYDR-4001 MT; +INSU100I28 SQ; +LEVE750T83 MT; +LOSA1TAB37 MT; -LOSA1TAB37 PO; -MELO-106 PO; +METF-414 PO; +METH-372 MT; +METO25TA6 PO; +MOM MT; +NA P133E RC; +ONDA4TAB50 MT; +PANT40TA51 MT; +TOPUD MT; +[UNRECOGNIZED DRUG - CODE] PO; +dexamethasone
[2025-11-14 14:54] VITALS: O2SAT 96
[2025-11-14 15:55] LABS: BASOPHILS % 0.8 % (0.0-2.0); EOSINOPHILS % 0.4 % (0.0-5.0); HEMATOCRIT. 32.4 % (36.0-48.0); HEMOGLOBIN. 10.1 g/dL (12.0-16.0); LYMPHOCYTES % 28.4 % (20.0-50.0); MEAN PLATELET VOLUME 6.7 fl (7.4-10.4); MONOCYTES % 9.5 % (2.0-8.0); NEUTROPHILS % 60.9 % (40.0-76.0); PLATELET 542 x1000/uL (130-400); RED BLOOD CELL COUNT 3.87 mill/uL (4.2-5.4); RED CELL DISTRIBUTION WIDTH 17.2 % (11.6-14.6)
[2025-11-14 16:06] LABS: CREATININE 1.6 mg/dL (0.6-1.0); UREA NITROGEN BLOOD 14.0 mg/dL (9-23)
[2025-11-14] MEDS: CEFTRIAXONE 1GM/50ML 50 ML IV ONE (17:45)
[2025-11-14] MEDS ORDERED: AZITHROMYCIN 500MG/250ML 250 ML IV ONE (17:45)
[2025-11-14] MEDS: SODIUM CHLORIDE 0.9% 1,000 ML IV ONE (17:45)
[2025-11-14 19:22] LABS: ASPARTATE AMINOTRANSFERASE 26 IU/L (<34); BILIRUBIN DIRECT < 0.1 mg/dL (<=3.0); BILIRUBIN TOTAL 0.2 mg/dL (0.1-1.0); PROTEIN TOTAL 7.0 g/dL (6.0-8.3); TROPONIN I HIGH SENSITIVITY 4 ng/L (3.0-34)
[2025-11-14] MEDS ORDERED: MAGNESIUM 2 G PREMIX 50 ML IV ONE (19:30)
[2025-11-14] MEDS: AZITHROMYCIN 500MG/250ML 250 ML IV NR (20:34)
[2025-11-14] MEDS ORDERED: ACETAMINOPHEN 325MG TABLET PO PRN ×2 (21:45)
[2025-11-14] MEDS ORDERED: CLONIDINE 0.1MG TABLET PO PRN (21:45)
[2025-11-14] MEDS ORDERED: AZITHROMYCIN 500 MG in DEXT 5% WATER 250 ML IV SCH (21:45)
[2025-11-14] MEDS ORDERED: IPRATROPIUM/ALBUTEROL 0.5-3(2.5)MG/3ML NEB HHN PRN (21:45)
[2025-11-14] MEDS ORDERED: DEXTROSE 50% WATER 50ML SYRINGE IV PRN (21:45)
[2025-11-14] MEDS ORDERED: DOCUSATE SODIUM 100MG CAPSULE PO PRN (21:45)
[2025-11-14 22:04] LABS: INR 1.0
[2025-11-14 22:30] VITALS: BP 121/80; PULSE 119; RESP 19; TEMP 36.6404
[2025-11-14] MEDS: HYDROCODONE/ACETAMINOPHEN 5/325MG TABLET PO PRN (23:17)
[2025-11-15 00:06] VITALS: BP_SYST 121; BP_SYST 129; BP_SYST 132; BP_DIAS 63; BP_DIAS 80; BP_DIAS 84; PULSE 115; RESP 18; TEMP 36.4; O2SAT 96
[2025-11-15] MEDS: MELATONIN 3MG TABLET PO SCH (00:31)
[2025-11-15 00:52] LABS: TROPONIN I HIGH SENSITIVITY 4 ng/L (3.0-34)
[2025-11-15 01:06] LABS: CREATINE KINASE MB FRACTION < 0.5 ng/mL (0.5-3.6)
[2025-11-15] MEDS: MAGNESIUM 4 G PREMIX 100 ML IV NR (01:23)
[2025-11-15] MEDS: SODIUM CHLORIDE 0.9% 1,000 ML IV SCH (01:24)
[2025-11-15 01:55] LABS: CLARITY URINE CLEAR (CLEAR); COLOR URINE YELLOW (YELLOW); GLUCOSE URINE NEGATIVE (NEGATIVE); KETONES URINE NEGATIVE (NEGATIVE); LEUKOCYTE ESTERASE URINE NEGATIVE (NEGATIVE); NITRITE URINE NEGATIVE (NEGATIVE); OCCULT BLOOD URINE NEGATIVE (NEGATIVE); PH URINE 5.5 (4.5-8.0); PROTEIN URINE TRACE (NEGATIVE); SPECIFIC GRAVITY URINE 1.016 (1.005-1.030); UROBILINOGEN URINE 0.2 E.U./dL (0.2-1.0)
[2025-11-15 02:05] LABS: BACTERIA URINE RARE; RBC URINE 0-2 /hpf (0-2); SQUAMOUS EPITHELIAL CELL URINE 1+ /lpf (RARE/1+); WBC URINE 0-2 /hpf (0-2)
[2025-11-15 02:06] LABS: *AMPHETAMINES SCREEN URINE NEGATIVE (NEGATIVE); *BARBITURATES SCREEN URINE NEGATIVE (NEGATIVE); *BENZODIAZEPINES SCREEN URINE NEGATIVE (NEGATIVE); *COCAINE SCREEN URINE NEGATIVE (NEGATIVE)
[2025-11-15 02:07] LABS: CANNABINOID URINE SCREEN NEGATIVE (NEGATIVE); ECSTASY MDMA SCREEN URINE NEGATIVE (NEGATIVE); METHADONE URINE SCREEN NEGATIVE (NEGATIVE); OPIATES URINE SCREEN NEGATIVE (NEGATIVE); PHENCYCLIDINE URINE SCREEN NEGATIVE (NEGATIVE)
[2025-11-15 04:00] VITALS: BP 120/75; PULSE 63; RESP 19; TEMP 36.3; O2SAT 99
[2025-11-15 04:36] LABS: INFLUENZA TYPE A Presumptive Negative (Pres. Neg.)
[2025-11-15 04:37] LABS: INFLUENZA TYPE B Presumptive Negative (Pres. Neg.)
[2025-11-15 04:38] LABS: RESPIRATORY SYNCYTIAL VIRUS Not Detected (Not Detectd)
[2025-11-15 06:15] LABS: BASOPHILS % 1.0 % (0.0-2.0); EOSINOPHILS % 1.5 % (0.0-5.0); HEMATOCRIT. 30.9 % (36.0-48.0); HEMOGLOBIN. 9.8 g/dL (12.0-16.0); LYMPHOCYTES % 36.0 % (20.0-50.0); MONOCYTES % 9.0 % (2.0-8.0); NEUTROPHILS % 52.5 % (40.0-76.0); RED BLOOD CELL COUNT 3.77 mill/uL (4.2-5.4); RED CELL DISTRIBUTION WIDTH 17.2 % (11.6-14.6)
[2025-11-15 06:19] LABS: CREATININE 1.5 mg/dL (0.6-1.0); PROTEIN TOTAL 6.9 g/dL (6.0-8.3)
[2025-11-15 06:20] LABS: TROPONIN I HIGH SENSITIVITY 4 ng/L (3.0-34); UREA NITROGEN BLOOD 14 mg/dL (9-23)
[2025-11-15 06:21] LABS: ASPARTATE AMINOTRANSFERASE 16 IU/L (<34); BILIRUBIN DIRECT < 0.1 mg/dL (<=3.0); CREATINE KINASE MB FRACTION < 0.5 ng/mL (0.5-3.6)
[2025-11-15 06:22] LABS: BILIRUBIN TOTAL 0.2 mg/dL (0.1-1.0); PHOSPHORUS 3.1 mg/dL (2.5-4.9)
[2025-11-15 06:23] LABS: VITAMIN B12 SERUM 646 pg/mL (211-911)
[2025-11-15 06:26] LABS: T4 FREE 1.21 ng/dL (0.89-1.76)
[2025-11-15 08:00] VITALS: BP 108/58; PULSE 116; RESP 18; TEMP 36.5; O2SAT 98
[2025-11-15] MEDS: BLOOD SUGAR DIAGNOSTIC STRIP TEST SCH (08:00)
[2025-11-15] MEDS: INSULIN LISPRO 100 UNITS/ML SUBCUT SCH (08:00)
[2025-11-15] MEDS ORDERED: LIDOCAINE HCL 1% 10 MG/ML 10ML VIAL ONE (08:05)
[2025-11-15] MEDS: FERROUS SULFATE 325MG TABLET PO SCH (08:51)
[2025-11-15] MEDS: METHIMAZOLE 10MG TABLET PO SCH (08:51)
[2025-11-15] MEDS: THIAMINE HCL 100MG TABLET PO SCH (08:51)
[2025-11-15] MEDS: FOLIC ACID 1MG TABLET PO SCH (08:52)
[2025-11-15] MEDS: DULOXETINE HCL 20MG DR CAPSULE PO SCH (08:52)
[2025-11-15] MEDS: MULTIVITAMINS,THER W-MINERALS TABLET PO SCH (08:52)
[2025-11-15] MEDS: METOPROLOL TARTRATE 25MG TABLET PO SCH (08:53)
[2025-11-15] MEDS: LOSARTAN 50 MG TABLET PO SCH (08:53)
[2025-11-15] MEDS ORDERED: LEVETIRACETAM 500MG PREMIX 100 ML IV SCH (09:00)
[2025-11-15 10:25] LABS: PLATELET 587 x1000/uL (130-400)
[2025-11-15] MEDS: LEVETIRACETAM 500MG/5ML CUP PO SCH ×2 (10:38→21:07)
[2025-11-15 12:00] VITALS: BP 112/80; PULSE 120; RESP 18; TEMP 36.4; O2SAT 95
[2025-11-15] MEDS: PANTOPRAZOLE SODIUM 40 MG/VIAL IV SCH (12:02)
[2025-11-15] MEDS: ENOXAPARIN 30MG/0.3ML SYR SUBCUT SCH (12:17)
[2025-11-15] MEDS: ASPIRIN 81MG EC TABLET PO SCH (12:17)
[2025-11-15 16:00] VITALS: BP 103/66; PULSE 119; RESP 18; TEMP 36.6; O2SAT 98
[2025-11-15] MEDS ORDERED: CEFTRIAXONE 1GM/50ML 50 ML IV SCH (17:00)
[2025-11-15] MEDS: CEFTRIAXONE 1GM/50ML 50 ML IV SCH (17:28)
[2025-11-15 20:00] VITALS: BP 109/61; PULSE 101; RESP 20; TEMP 36.8; O2SAT 95
[2025-11-15] MEDS ORDERED: KETOROLAC 15MG/ML VIAL IV PRN (20:45)
[2025-11-15] MEDS: AZITHROMYCIN 500MG in D5W 250ML IV SCH (21:05)
[2025-11-15] MEDS: ONDANSETRON HCL 4MG/2ML INJ IV PRN (21:50)
[2025-11-16] VITALS: BP 106/74; PULSE 96; RESP 18; TEMP 36.3; O2SAT 93
[2025-11-16] MEDS: ZOLPIDEM TARTRATE 5MG TABLET PO PRN (00:41)
[2025-11-16] MEDS: INFLUENZA VACCINE 05/PF 0.5 ML SYRINGE IM ONE (00:44)
[2025-11-16 00:45] LABS: TROPONIN I HIGH SENSITIVITY 4 ng/L (3.0-34)
[2025-11-16 00:47] LABS: CREATINE KINASE MB FRACTION < 0.5 ng/mL (0.5-3.6)
[2025-11-16 04:00] VITALS: BP 119/74; PULSE 106; RESP 20; TEMP 36.3; O2SAT 94
[2025-11-16 07:12] LABS: CREATINE KINASE MB FRACTION < 0.5 ng/mL (0.5-3.6); TROPONIN I HIGH SENSITIVITY 5 ng/L (3.0-34)
[2025-11-16 07:13] LABS: TRIGLYCERIDE 89.0 mg/dL (0-150)
[2025-11-16 07:14] LABS: LDL CHOLESTEROL 94.0 mg/dL (5-100); T4 FREE 1.17 ng/dL (0.89-1.76)
[2025-11-16 08:00] VITALS: BP 133/88; PULSE 116; RESP 18; TEMP 36.4; O2SAT 99
[2025-11-16 12:16] VITALS: BP 133/88; PULSE 112; RESP 18; TEMP 97.5
== END 2025-11-16 13:08 | disposition home or self-care (01) | DRG 871 ==
LOC: ER 15:02 → EDBEDREQ 20:14 → EDBEDREQTM 20:14 → ENRESERV 21:34 → 8WST 22:37
PROVIDERS: ADMIT Internal Medicine; ATTEND Internal Medicine
PROC: 05H533Z Insertion of Infusion Device into Right Subclavian Vein, Percutaneous Approach (ICD-10-PCS; principal; 2025-11-15)
PROC: B546ZZA Ultrasonography of Right Subclavian Vein, Guidance (ICD-10-PCS; 2025-11-15)
DX: A41.9 Sepsis, unspecified organism (principal); J18.9 Pneumonia, unspecified organism; N17.9 Acute kidney failure, unspecified; D64.9 Anemia, unspecified; E11.22 Type 2 diabetes mellitus with diabetic chronic kidney disease; G40.909 Epilepsy, unspecified, not intractable, without status epilepticus; E05.90 Thyrotoxicosis, unspecified without thyrotoxic crisis or storm; E03.9 Hypothyroidism, unspecified; F32.A Depression, unspecified; I12.9 Hypertensive chronic kidney disease with stage 1 through stage 4 chronic kidney disease, or unspecified chronic kidney disease; N18.9 Chronic kidney disease, unspecified; D75.838 Other thrombocytosis; I95.1 Orthostatic hypotension; M48.061 Spinal stenosis, lumbar region without neurogenic claudication; R29.6 Repeated falls; M47.812 Spondylosis without myelopathy or radiculopathy, cervical region; R07.89 Other chest pain; E83.42 Hypomagnesemia; G89.29 Other chronic pain; M48.02 Spinal stenosis, cervical region; U09.9 Post COVID-19 condition, unspecified; Z79.4 Long term (current) use of insulin; Z79.84 Long term (current) use of oral hypoglycemic drugs; Z82.49 Family history of ischemic heart disease and other diseases of the circulatory system; Z90.710 Acquired absence of both cervix and uterus; Z91.018 Allergy to other foods; Z79.899 Other long term (current) drug therapy
CPT/HCPCS: 36415; 36573; 71045; 80048; 80061; 80076; 80305; 81003; 82550; 82553; 82607; 82962; 83036; 83540; 83550; 83605; 83735; 83880; 84100; 84145; 84439; 84443; 84481; 84484; 85025; 85379; 87420; 87804; 90686; 93005; 99291; C1725; C1769; J0456; J0696; J1650; J1815; J1953; J2003; J2405; J2470; J3475; J7030; L0172

== ENCOUNTER 2025-11-19 19:39 | Inpatient (IN) | payer MEDICARE, MEDICAID ==
[~2025-11-19] VITALS: Ht 165.1 cm; Wt 80.3 kg
[2025-11-19 19:41] VITALS: O2SAT 99
[2025-11-19 21:29] LABS: BASOPHILS % 0.3 % (0.0-2.0); EOSINOPHILS % 0.4 % (0.0-5.0); HEMATOCRIT. 27.3 % (36.0-48.0); HEMOGLOBIN. 8.7 g/dL (12.0-16.0); LYMPHOCYTES % 25.7 % (20.0-50.0); MEAN PLATELET VOLUME 6.8 fl (7.4-10.4); MONOCYTES % 9.5 % (2.0-8.0); NEUTROPHILS % 64.1 % (40.0-76.0); PLATELET 719 x1000/uL (130-400); RED BLOOD CELL COUNT 3.39 mill/uL (4.2-5.4); RED CELL DISTRIBUTION WIDTH 17.5 % (11.6-14.6)
[2025-11-19] MEDS: SODIUM CHLORIDE 0.9% (SEPSIS BOLUS) IV ONE (21:31)
[2025-11-19] MEDS: PIPERACILLIN/TAZO 3.375G/50ML 50 ML IV ONE (21:31)
[2025-11-19 21:42] LABS: CLARITY URINE CLEAR (CLEAR); COLOR URINE YELLOW (YELLOW); GLUCOSE URINE NEGATIVE (NEGATIVE); KETONES URINE NEGATIVE (NEGATIVE); LEUKOCYTE ESTERASE URINE NEGATIVE (NEGATIVE); NITRITE URINE NEGATIVE (NEGATIVE); OCCULT BLOOD URINE NEGATIVE (NEGATIVE); PH URINE >=9.0 (4.5-8.0); PROTEIN URINE NEGATIVE (NEGATIVE); SPECIFIC GRAVITY URINE 1.011 (1.005-1.030); UROBILINOGEN URINE 0.2 E.U./dL (0.2-1.0)
[2025-11-19 21:44] LABS: CREATININE 1.8 mg/dL (0.6-1.0); UREA NITROGEN BLOOD 17 mg/dL (9-23)
[2025-11-19 21:45] LABS: ETHANOL BLOOD < 10 mg/dL (<10); INR 1.0; PROTEIN TOTAL 7.1 g/dL (6.0-8.3); TROPONIN I HIGH SENSITIVITY 4 ng/L (3.0-34)
[2025-11-19 21:46] LABS: ASPARTATE AMINOTRANSFERASE 19 IU/L (<34); BILIRUBIN DIRECT < 0.1 mg/dL (<=3.0)
[2025-11-19 21:47] LABS: BILIRUBIN TOTAL 0.3 mg/dL (0.1-1.0)
[2025-11-19 23:11] LABS: *AMPHETAMINES SCREEN URINE NEGATIVE (NEGATIVE); *BARBITURATES SCREEN URINE NEGATIVE (NEGATIVE); *BENZODIAZEPINES SCREEN URINE NEGATIVE (NEGATIVE); *COCAINE SCREEN URINE NEGATIVE (NEGATIVE); CANNABINOID URINE SCREEN NEGATIVE (NEGATIVE); ECSTASY MDMA SCREEN URINE NEGATIVE (NEGATIVE); METHADONE URINE SCREEN NEGATIVE (NEGATIVE); OPIATES URINE SCREEN NEGATIVE (NEGATIVE); PHENCYCLIDINE URINE SCREEN PRESUMTIVE POSITIVE (NEGATIVE)
[2025-11-19] MEDS: MAGNESIUM 2 G PREMIX 50 ML IV ONE (23:23)
[2025-11-19] MEDS: PANTOPRAZOLE SODIUM 40 MG/VIAL IV ONE (23:23)
[2025-11-19] MEDS: ONDANSETRON HCL 4MG/2ML INJ IV ONE (23:24)
[2025-11-19] MEDS: MORPHINE SULFATE 4 MG/ML INJ (FOR IV/IM USE) IV ONE (23:24)
[2025-11-20 00:06] LABS: INFLUENZA TYPE A Presumptive Negative (Pres. Neg.)
[2025-11-20 00:08] LABS: INFLUENZA TYPE B Presumptive Negative (Pres. Neg.)
[2025-11-20 00:50] LABS: BG BASE EXCESS 2.5 mmol/L (-2.0-3.0); BG CARBOXYHEMOGLOBIN 0.8 % (0.5-1.5); BG DEOXYHEMOGLOBIN 19.2 % (0.0-5.0); BG FRACTION INSPIRED OXYGEN 21; BG HCO3 ACT 26.0 mmol/L (21.0-28.0); BG METHEMOGLOBIN 0.3 % (0.5-1.5); BG OXYGEN SATURATION 80.6 % (94.0-98.0); BG OXYHEMOGLOBIN 79.7 % (94.0-98.0); BG PCO2 35.5 mmHg (32.0-45.0); BG PH 7.482 (7.350-7.450); BG PO2 43.8 mmHg (83.0-108.0); BG SAMPLE SITE RIGHT RADIAL; BG TOTAL HEMOGLOBIN 8.7 g/dL (12.0-16.0); BG VENT MODE ROOM AIR
[2025-11-20 01:01] VITALS: BP 126/89; PULSE 119; RESP 14; TEMP 37.4; TEMP 37.4188; O2SAT 100
[2025-11-20] MEDS ORDERED: ACETAMINOPHEN 325MG TABLET PO PRN ×2 (02:00→09:45)
[2025-11-20] MEDS: HYDROCODONE/ACETAMINOPHEN 10/325MG TABLET PO PRN (02:13)
[2025-11-20] MEDS ORDERED: NALOXONE HCL 0.4MG/ML VIAL IV PRN (02:15)
[2025-11-20] MEDS ORDERED: BENZONATATE 100MG CAPSULE PO PRN (02:30)
[2025-11-20] MEDS ORDERED: INSULIN GLARGINE 100 UNITS/ML SUBCUT SCH (02:30)
[2025-11-20] MEDS ORDERED: DEXTROSE 50% WATER 50ML SYRINGE IV PRN ×2 (02:45→09:45)
[2025-11-20 04:04] VITALS: BP 130/67; PULSE 116; TEMP 36.7; O2SAT 98
[2025-11-20] MEDS: BLOOD SUGAR DIAGNOSTIC STRIP TEST SCH ×2 (06:38→11:50)
[2025-11-20] MEDS: PANTOPRAZOLE 40MG DR TABLET PO SCH (06:46)
[2025-11-20 08:00] VITALS: BP 106/82; PULSE 121; RESP 18; TEMP 36.9; O2SAT 96
[2025-11-20] MEDS: DULOXETINE HCL 20MG DR CAPSULE PO SCH (08:55)
[2025-11-20] MEDS: HYDROCHLOROTHIAZIDE 25MG TABLET PO SCH (08:55)
[2025-11-20] MEDS: METHIMAZOLE 5MG TABLET PO SCH (08:56)
[2025-11-20] MEDS: LEVETIRACETAM 250MG TABLET PO SCH (08:56)
[2025-11-20] MEDS: LOSARTAN 100 MG TABLET PO SCH (08:56)
[2025-11-20] MEDS: METOPROLOL SUCCINATE 25MG ER TABLET PO SCH (08:56)
[2025-11-20] MEDS: INSULIN LISPRO 100 UNITS/ML SUBCUT SCH ×2 (08:58→12:20)
[2025-11-20] MEDS: INSULIN GLARGINE 100 UNITS/ML SUBCUT SCH (08:58)
[2025-11-20] MEDS ORDERED: ONDANSETRON HCL 4MG/2ML INJ IV PRN (09:45)
[2025-11-20 09:47] LABS: BG BASE EXCESS 1.3 mmol/L (-2.0-3.0); BG CARBOXYHEMOGLOBIN 1.0 % (0.5-1.5); BG DEOXYHEMOGLOBIN 11.3 % (0.0-5.0); BG FRACTION INSPIRED OXYGEN 21; BG HCO3 ACT 25.5 mmol/L (21.0-28.0); BG METHEMOGLOBIN 0.3 % (0.5-1.5); BG OXYGEN SATURATION 88.6 % (94.0-98.0); BG OXYHEMOGLOBIN 87.4 % (94.0-98.0); BG PCO2 38.3 mmHg (32.0-45.0); BG PH 7.441 (7.350-7.450); BG PO2 56.0 mmHg (83.0-108.0); BG SAMPLE SITE RIGHT RADIAL; BG TOTAL HEMOGLOBIN 9.1 g/dL (12.0-16.0); BG VENT MODE ROOM AIR
[2025-11-20 10:46] LABS: CREATININE 1.4 mg/dL (0.6-1.0); TRIGLYCERIDE 89.0 mg/dL (0-150); UREA NITROGEN BLOOD 11.0 mg/dL (9-23)
[2025-11-20 10:47] LABS: LDL CHOLESTEROL 77.0 mg/dL (5-100)
[2025-11-20 12:00] VITALS: BP_SYST 114; BP_SYST 134; BP_DIAS 70; BP_DIAS 80; PULSE 106; PULSE 89; RESP 13; RESP 16; TEMP 37.1; O2SAT 98; O2SAT 99
[2025-11-20] MEDS: CEFTRIAXONE 1GM/50ML 50 ML IV SCH (12:33)
[2025-11-20 16:00] VITALS: BP 99/69; PULSE 103; RESP 11; TEMP 37; O2SAT 97
[2025-11-20] MEDS: DOXYCYCLINE 100MG/100ML 100 ML IV SCH (17:48)
[2025-11-20 20:00] VITALS: BP 104/76; PULSE 98; RESP 14; TEMP 36.6; O2SAT 98
[2025-11-20] MEDS: ZOLPIDEM TARTRATE 5MG TABLET PO PRN (21:02)
[2025-11-21] VITALS: BP 113/82; PULSE 96; RESP 13; TEMP 36.7; O2SAT 97
[2025-11-21 04:00] VITALS: BP 139/89; PULSE 111; RESP 21; O2SAT 97
[2025-11-21 07:13] LABS: BASOPHILS % 1.4 % (0.0-2.0); EOSINOPHILS % 3.4 % (0.0-5.0); HEMATOCRIT. 28.8 % (36.0-48.0); HEMOGLOBIN. 9.0 g/dL (12.0-16.0); LYMPHOCYTES % 31.3 % (20.0-50.0); MEAN PLATELET VOLUME 6.8 fl (7.4-10.4); MONOCYTES % 10.4 % (2.0-8.0); NEUTROPHILS % 53.5 % (40.0-76.0); PLATELET 545 x1000/uL (130-400); RED BLOOD CELL COUNT 3.52 mill/uL (4.2-5.4); RED CELL DISTRIBUTION WIDTH 17.3 % (11.6-14.6)
[2025-11-21 07:26] LABS: CREATININE 1.1 mg/dL (0.6-1.0); UREA NITROGEN BLOOD 7.0 mg/dL (9-23)
[2025-11-21 08:00] VITALS: BP 118/74; PULSE 103; RESP 14; TEMP 36.8; O2SAT 98
[2025-11-21] MEDS: METHIMAZOLE 10MG TABLET PO SCH ×2 (08:30→20:30)
[2025-11-21] MEDS ORDERED: PANTOPRAZOLE SODIUM 40 MG/VIAL IV SCH (09:00)
[2025-11-21] MEDS: METOPROLOL TARTRATE 50MG TABLET PO SCH ×2 (10:30→20:30)
[2025-11-21 12:00] VITALS: BP 116/84; PULSE 94; RESP 17; TEMP 36.9; O2SAT 99
[2025-11-21] MEDS: GUAIFENESIN 200MG/10ML SUGAR FREE UDC PO PRN (14:18)
[2025-11-21 16:00] VITALS: BP 127/98; PULSE 95; RESP 18; TEMP 36.9; O2SAT 98
[2025-11-21] MEDS ORDERED: METO-539 MT (17:20)
[2025-11-21 20:00] VITALS: BP 125/92; PULSE 102; RESP 17; TEMP 37.3; O2SAT 100
[2025-11-22] VITALS (7 sets, daily range): BP systolic 114–129; BP diastolic 75–97; PULSE 93–133; RESP 13–20; TEMP 36.5–36.9; O2SAT 99–100
[2025-11-22] MEDS: ONDANSETRON 4MG ODT PO PRN (23:09)
[2025-11-23] VITALS: BP 118/92; PULSE 98; RESP 17; TEMP 36.6; O2SAT 99
[2025-11-23 04:15] VITALS: PULSE 94; RESP 19; O2SAT 100
[2025-11-23 04:45] VITALS: BP 123/89; PULSE 103; RESP 22; TEMP 36.6; O2SAT 100
[2025-11-23 08:00] VITALS: BP 106/83; PULSE 105; RESP 19; TEMP 36.6; O2SAT 100
[2025-11-23 14:28] VITALS: BP 126/77; PULSE 108; RESP 16; TEMP 98.2
== END 2025-11-23 17:27 | disposition home or self-care (01) | DRG 872 ==
LOC: ER 19:47 → 3WST 22:58 → EDBEDREQTM 23:14 → EDBEDREQ 23:14 → ENRESERV 11-20 00:08
PROVIDERS: ADMIT Internal Medicine; ATTEND Internal Medicine
DX: A41.9 Sepsis, unspecified organism (principal); E87.20 Acidosis, unspecified; N17.9 Acute kidney failure, unspecified; D50.9 Iron deficiency anemia, unspecified; E11.65 Type 2 diabetes mellitus with hyperglycemia; E05.90 Thyrotoxicosis, unspecified without thyrotoxic crisis or storm; I10 Essential (primary) hypertension; G40.909 Epilepsy, unspecified, not intractable, without status epilepticus; E83.42 Hypomagnesemia; Z20.822 Contact with and (suspected) exposure to COVID-19; M54.9 Dorsalgia, unspecified; K44.9 Diaphragmatic hernia without obstruction or gangrene; M47.812 Spondylosis without myelopathy or radiculopathy, cervical region; Z82.49 Family history of ischemic heart disease and other diseases of the circulatory system; Z86.73 Personal history of transient ischemic attack (TIA), and cerebral infarction without residual deficits; Z87.01 Personal history of pneumonia (recurrent); Z90.710 Acquired absence of both cervix and uterus; Z88.8 Allergy status to other drugs, medicaments and biological substances
CPT/HCPCS: 36415; 36600; 71045; 74176; 80048; 80061; 80076; 80305; 80320; 81003; 82010; 82375; 82805; 82962; 83605; 83735; 83880; 84145; 84484; 85025; 87426; 87804; 93005; 93970; 96365; 99291; A4606; J0696; J1815; J2270; J2405; J2470; J2543; J3475; J3490; J7030; Q0162; G0480